=== PATIENT | male | born 1975 | race Caucasian/White ===

== ENCOUNTER 2017-11-09 18:27 | Emergency (ER) | payer BC ==
--- NOTE | 2017-11-09 20:16 | RAD ---
INDICATION: Crush injury to the right fourth finger COMPARISON: None. TECHNIQUE: 3 views of the right fourth finger were obtained. FINDINGS: There is a nondisplaced fracture through the diaphysis of the right fourth finger distal phalanx as well as a likely nondisplaced fracture of the ulnar side distal tuft. Associated soft tissue swelling is noted as well. IMPRESSION: NONDISPLACED FRACTURE OF THE DISTAL PHALANX OF THE RIGHT FOURTH FINGER.
--- NOTE | 2017-11-09 21:36 | ED ---
Upper Extremity Pain - HPI Summary HPI Summary: 42 male presents with right ring finger injury today. He states he was place a trailer onto his truck. He states he dropped the trailer hitch onto his distal phalanx of his right ring finger. He is limited range of motion of his finger. He has edema and ecchymosis noted to the area. Pain is 4 out of 10. He hasn' t taking anything for his pain. He denies any previous injury to the area. He denies any numbness or tingling. Has also small abrasion noted to the finger. - History of Current Complaint Chief Complaint: EDExtremityUpper Stated Complaint: FINGER LAC Time Seen by Provider: 11/09/17 21:32 - Allergies/Home Medications Allergies/Adverse Reactions: Allergies Allergy/AdvReac Type Severity Reaction Status Date / Time No Known Allergies Allergy Verified 11/09/17 18:51 PMH/Surg Hx/FS Hx/Imm Hx Endocrine/Hematology History: Denies: Hx Anticoagulant Therapy Cardiovascular History: Denies: Hx Myocardial Infarction Infectious Disease History: No Infectious Disease History: Denies: Traveled Outside the [place] in Last 30 Days - Family History Known Family History: Negative: Diabetes - Social History Alcohol Use: Occasionally Substance Use Type: Reports: None Smoking Status (MU): Unknown if Ever Smoked Review of Systems Negative: Fever Negative: Chest Pain Negative: Shortness Of Breath Positive: Myalgia - right ring finger, Edema - right ring finger All Other Systems Reviewed And Are Negative: Yes Physical Exam Triage Information Reviewed: Yes Vital Signs On Initial Exam: Initial Vitals Temp Pulse Resp BP Pulse Ox 99.3 F 69 15 132/68 99 11/09/17 18:48 11/09/17 18:48 11/09/17 18:48 11/09/17 18:48 11/09/17 18:48 Vital Signs Reviewed: Yes Appearance: Positive: Well-Appearing Skin: Positive: Other - ecchymosis to distal phlanax right ring finger Head/Face: Positive: Normal Head/Face Inspection Eyes: Positive: Normal, Conjunctiva Clear Respiratory/Lung Sounds: Positive: Clear to Auscultation, Breath Sounds Present Cardiovascular: Positive: Normal, RRR Musculoskeletal: Positive: Limited @ - distal phalanx right ring finger, Edema Right - distal phalanx right ring finger, Other - Capillary refill less than 2 seconds, abrasion to nailbed right ring finger, tenderness distal phalanx right ring finger, good pulses Neurological: Positive: Normal Psychiatric: Positive: Normal Diagnostics - Vital Signs Vital Signs Temp Pulse Resp BP Pulse Ox 11/09/17 18:48 99.3 F 69 15 132/68 99 - Laboratory Lab Statement: Any lab studies that have been ordered have been reviewed, and results considered in the medical decision making process. - Radiology finger Xray Interpretation: Positive (See Comments) - IMPRESSION: NONDISPLACED FRACTURE OF THE DISTAL PHALANX OF THE RIGHT FOURTH FINGER. Radiology Interpretation Completed By: Radiologist Course/Dx - Course Course Of Treatment: 42 male presents with right ring finger injury today. He states he was place a trailer onto his truck. He states he dropped the trailer hitch onto his distal phalanx of his right ring finger. He is limited range of motion of his finger. He has edema and ecchymosis noted to the area. Pain is 4 out of 10. He hasn't taking anything for his pain. He denies any previous injury to the area. He denies any numbness or tingling. Has also small abrasion noted to the finger. On exam is ecchymosis noted to the right ring distal phalanx. Neurovascular intact. X-ray shows a nondisplaced fracture. Og tape area. Told to practice RICE. Told to follow-up with ortho or primary. Patient understands agrees plan. - Diagnoses Differential Diagnosis/HQI/PQRI: Positive: Fracture (Closed), Strain, Sprain Provider Diagnoses: Phalanx, distal fracture of finger Discharge - Sign-Out/Discharge Documenting (check all that apply): Discharge/Admit/Transfer - Discharge Plan Condition: Good Disposition: HOME Patient Education Materials: Finger Fracture (ED) Referrals: No Primary Care Phys,NOPCP [Primary Care Provider] - Hugo Milton MD [Medical Doctor] - Additional Instructions: Keep finger in splint Follow up with ortho or primary elevate, ice Take tyenlol or ibuprofen for pain every 6 hours Return to ED if develop any new or worsening symptoms - Billing Disposition and Condition Condition: GOOD Disposition: HOME
[2017-11-09 21:41] VITALS: BP 0/0
== END 2017-11-09 21:45 | disposition home or self-care (01) ==
LOC: ED 18:31
DX: S62.634A Displaced fracture of distal phalanx of right ring finger, initial encounter for closed fracture (principal); W22.8XXA Striking against or struck by other objects, initial encounter; Y92.9 Unspecified place or not applicable
CPT/HCPCS: 73140; 99282